=== PATIENT | female | born 1980 | race Caucasian/White ===

== ENCOUNTER 2023-12-20 11:00 | Outpatient (CLI) | payer OTHER, SELFPAY | END 2023-12-20 11:01 | disposition home or self-care (01) | PROVIDERS: Visit Provider Obstetrics & Gynecology | DX: N93.9 Abnormal uterine and vaginal bleeding, unspecified (principal) | CPT/HCPCS: 84146; 84443 ==

== ENCOUNTER 2023-12-31 11:35 | Outpatient (CLI) | payer OTHER, SELFPAY ==
--- NOTE | 2023-12-31 11:30 | CRLHL7_ITS ---
For Patients: As a result of the Century Cures Act, medical imaging exams and procedure reports are released immediately into your electronic medical record. You may view this report before your referring provider. If you have questions, please contact your health care provider. INDICATION: Abnormal bleeding COMPARISON: none TECHNIQUE: 2D queen scale and color Doppler images were acquired of the pelvis using a transabdominal and transvaginal approach. FINDINGS: Sonographic images demonstrate a normal size and smooth outer contour of the uterus. Uterus measures 9.4 cm in length by 3.6 cm in AP diameter by 5.8 cm in transverse dimension. The myometrium has a normal uniform echotexture. The endometrial lining measures 5.1 mm in composite thickness. IUD is present within the endometrial canal. The right ovary measures 2.8 x 1.6 x 1.4 cm in size and the left ovary measures 3.7 x 1.8 x 2.7 cm. The ovaries demonstrate normal arterial and venous blood flow on color Doppler analysis. There are no suspicious fluid collections within the cul-de-sac. Simple anechoic left ovarian cyst measures 1.9 x 1.1 x 2.0 cm. Additional simple left ovarian cyst measures 1.3 x 1.5 x 2.5 cm. IMPRESSION: Endometrial thickness 5.1 millimeters. IUD present within the endometrial canal in good position. Dictated by Tejas Phipps MD @ 12/31/2023 12:37:35 PM (Electronically Signed)
== END 2023-12-31 11:36 | disposition home or self-care (01) ==
LOC: US 11:35
PROVIDERS: Visit Provider Obstetrics & Gynecology
DX: N93.9 Abnormal uterine and vaginal bleeding, unspecified (principal); R93.89 Abnormal findings on diagnostic imaging of other specified body structures
CPT/HCPCS: 76830; 76856

== ENCOUNTER 2024-01-09 09:49 | Outpatient (CLI) | payer OTHER, SELFPAY | END 2024-01-09 09:50 | disposition home or self-care (01) | PROVIDERS: Visit Provider Family Medicine | DX: R53.83 Other fatigue (principal); F32.A Depression, unspecified; F41.9 Anxiety disorder, unspecified; Z13.6 Encounter for screening for cardiovascular disorders | CPT/HCPCS: 80053; 80061; 82728 ==

== ENCOUNTER 2024-01-22 05:50 | Day surgery (SDC) | payer OTHER, SELFPAY ==
[2024-01-22] VITALS (12 sets, daily range): BP systolic 106–126; BP diastolic 55–89; PULSE 55–74; RESP 14–20; TEMP 35.8–36.9; O2SAT 97–100; BMI 27.8
--- OUTSIDE RECORDS SUMMARY | 2024-01-22 05:54 | XMS_ITS | Clinical Summary ---
Author Organization [employer] [facility] Address [place], [place] [address] Care Team Providers Care Engine Room Helper Name Role Phone Sol High MD Primary Care Provi harshad Allergies Active Allergy Reactions Criticality Noted Date Comments Cats (Fur, Dander, Saliva) Runny Nose House Dust Runny Nose 12/02/2022 Pollen Extracts Runny Nose 12/02/2022 Medications Medication Sig Dispensed Refills Start Date End Date Status albuterol HFA (Ventolin HFA) 90 mcg/actuation inhalerIndications:S easonal allergic rhinitis due to pollen Inhale 2 Puffs by mouth 4 times daily if needed (cough). 18 g 1 10/07/2021 Active Calcium Citrate 250 mg calcium tablet Take 2 Tablets (500 mg) by mouth two times daily with meals. 240 Tablet 5 04/07/2022 Active multivitamin (MVI) tablet Take 1 Tablet by mouth once daily. 0 04/07/2022 Active elderberry fruit 50 mg/5 mL syrp Take by mouth. 0 04/07/2022 Active azelastine 137 mcg/actuation (ASTELIN) nasal sprayIndications:All ergic rhinitis due to pollen, unspecified seasonality Inhale 1 [place] into affected nostril(s) two times daily. 30 mL 2 04/07/2022 Active Active Problems Problem Noted Date Diagnosed Date Fatty liver 08/03/2021 Dysmenorrhea 08/03/2021 Overview (08/03/2021): Sees ObGyn for hysterectomy Family history of breast cancer 08/03/2021 Overview (08/03/2021): And ovarian cancer and melanoma History of alcohol use disorder 01/01/2019 Generalized anxiety disorder 01/25/2018 Major depressive disorder 01/25/2018 LGSIL of cervix of undetermined significance 03/2013 Overview (11/19/2023): 03/2012 LSIL 05/2012 [place]: No biopsy 11/2013 LSIL/HPV+, HPV 16/18 negative 11/2013 [place]: LOLI 1 11/2015 LSIL 04/2016 [place]: Biopsy LOLI 1, ECC Benign 11/2017 ASCUS/HPV+ 12/2017 [place]: Biopsy and ECC Benign 04/2019 LSIL/HPV+ 02/2020 [place]: ECC Benign 04/2020 ASCUS/HPV+ 12/2021 LSIL/HPV+, HPV 16/18 negative 03/2022 [place]: ECC Benign 10/2023 LSIL/HPV+, HPV 16/18 negative. Plan: Pap/HPV due 10/2024. Allergic rhinitis, cause unspecified 08/12/2003 Resolved Problems Problem Noted Date Diagnosed Date Resolved Date Mild intermittent asthma without complication 12/14/19 21 10/04/2022 Post-dates 02/19/2016 017 Positive GBS test 01/31/2016 04/10/2016 Overview (01/31/2016): Will need antibiotics in labor Anemia affecting 12/23/2015 0 04/10/2016 Rubella non-immune status, antepartum 11/19/2015 04/10/2016 Overview (11/19/2015): Recommend MMR Anemia affecting 11/19/2015 0 04/10/2016 Overview (11/19/2015): 11/19/2015 Hemoglobin 11.0 at 28w0d (new OB visit) Encounter for supervision of other normal , second trimester 11/18/2015 04/10/2016 Overview (02/08/2016): 35 y.o. Medical concerns: None - New patient Late care - 27+ weeks. H/O vag delivery--- 2012 Genetic screening: not done Ultrasound findings: 1) 11/25/15 at 28w6d. Normal FAS, anterior placenta. Consistent with LMP. Peds: Will continue to use current FOB: involved, name Rubella nonimmune, Rh positive. IOL scheduled for 02/18/16 in the AM. Likely Cytotec unless [place] improved by that point (from 02/08/16, it is 4 today). Okay with early AROM/whatever is needed for induction. LGSIL of cervix of undetermined significance 5 08/03/2021 Overview (05/31/2020): 04/18/2012 Pap: LSIL 05/30/2012 [place]: No Bx () 01/02/2013 Pap: LSIL 11/26/2013 Pap: LSIL/HPV+ 12/22/2013 [place]: LOLI I 11/26/2015 Pap: LSIL 05/19/2016 [place]: LOLI I 12/04/2017 Pap: ASCUS/HPV positive 01/08/2018 [place]: Benign 04/29/2019 Pap: LSIL/HPV+ 03/11/2020 [place]: ECC Benign 04/30/2020 Pap: ASCUS/HPV+ PLAN: Repeat Pap and HPV @ 1 year- 04/2021 Influenza with other respira tory manifestations 06/08/2004 04/10/2016 Encounters Date Type Department Care Team Description 01/01/2024 Lab Requisition [facility] [phone] Audra Delgado MD 11/19/[address] [phone] Beni Pacheco MD Pap Plan 11/07/2023 3:15 PM CDT Office Visit [address] [phone] Beni Pacheco MD Consult (Vaginal discharge and pain ) 11/07/2023 Travel 11/04/2023 1:30 PM CDT Office Visit [facility] [address] [facility] [place] [phone] Laura Marin, SAM Vaginal Problem (hx kajal cyst 04/17, noticed vaginal pain x couple months , getting worse) 11/04/2023 Travel from Last 3 Months Immunizations Name Administration Dates Next Due HPV 9 (Gardasil 9) 11/07/2023 Influenza, IIV4 03/03/2021, 0,12/30/2018,2017,12/30/2015 Influenza,CCIIV4 PRESERV FREE 01/27/2022 MMR 02/20/2016 Pneumococcal Conj 20-valent (Prevnar 20) 04/07/2022 Tdap 11/26/2015 Family History Medical History Relation Name Comments Diabetes Father Hypertension Father Stroke Father Cancer-breast Maternal Aunt Cancer Maternal Grandmother ovarian Diabetes Mother Cancer-breast Paternal Grandmother Relation Name Status Comments Father Maternal Aunt Maternal Grandmother Mother Paternal Grandmother Social History Tobacco Use Types Packs/Day Years Used Date Smoking Tobacco: Former Cigarettes Q uit: 2003 Smokeless Tobacco: Never Tobacco Cessation:Counseling Given: Not Answered Alcohol Use Standard Drinks/Week Comments Not Currently 0 (1 standard drink = 0.6 oz pure alcohol) sober 18 months as of 04/30/2020 PHQ-2 Answer Date Recorded PHQ-2 TOTAL SCORE 4 08/03/2021 Social Connections Answer Date Recorded Frequency of Communication with Friends and Fami ly Not on file 12/12/2023 Financial Resource Strain Answer Date R ecorded Difficulty of Paying Living Expenses 3 12/02/2022 Difficulty of Paying Living Expenses Not on file 12/02/2022 Food Insecurity Answer Date Recorded Worried About Running Out of Food in the Last Ye ar 1 12/02/2022 Transportation Needs Answer Date Record ed Lack of Transportation (Medical) 1 12/02/2022 Housing Stability Answer Date Recorded Unable to Pay for Housing in the Last Year 1 12/02/2022 Sex and Gender Information Value Date Recorded Sex Assigned at Not on file Gender Identity Female 09/13/2019 1:53 AM CDT Sexual Orientation Straight 09/13/2019 1: 53 AM CDT Obstetrics History Para Term AB IAB SAB Ectopic Multiple Livin g Live Births 4 2 2 0 2 0 1 1 0 2 2 Date Outcome GA Total Labor Labor/2nd/3rd Weight Sex Type Anes PTL Marcie A1 A5 Name Clin Ectopic SAB 2012 Term 41w 0d 3.37 kg (7 lb 7 oz) Vag Livin g 2015 Term 41w 1d 3.34 kg (7 lb 5.8 oz) F VAGINA L LEIDY Epidur al Livin g 8 9 [facility] Delivery Location:[facility] Last Filed Vital Signs Vital Sign Reading Time Taken Comments Blood Pressure 116/80 11/07/2023 3:12 PM CDT Pulse 86 11/07/2023 3:12 PM CDT Temperature 36.7 ??C (98.1 ??F) 11/04/2023 1:37 PM CD T Respiratory Rate 18 11/04/2023 1:37 PM CDT Oxygen Saturation 97% 11/04/2023 1:37 PM CDT Inhaled Oxygen Concentration - - Weight 74.4 kg (164 lb) 11/07/2023 3:12 PM CDT Height 162.6 cm (5' 4) 12/08/2022 8:10 AM CDT Body Mass Index 28.15 12/08/2022 8:10 AM CDT Plan of Treatment Health Maintenance Due Date Last Done Comments Hepatitis C screening for age 18-79 11/14/1999 Depression screening for age 12+ 08/03/2022 08/03/2021, 04/30/2020, 05/02/2019, Additional history exists BMI (ht and wt on same day) for age 18+ 01/19/2023 01/19/2022, 08/03/2021, 04/30/2020, Additional history exists COVID-19 vaccine series ( season) 2023 01/27/2022, 03/03/2021, 08/14/2020, Additional history exists Influenza for age 9-49 11/25/2023 2, 03/03/2021, 01/22/2020, Additional history exists Pap test for age 21-65 11/06/2024 4, 11/07/2023, 04/19/2022 (Verified in Care Everywhere or Patient Record), Additional history exists Tetanus booster 11/25/2025 11/26/2015 HIV for age 15-65 Completed 11/18/2015 Tdap Completed 11/26/2015 Pneumococcal series for age 6-64 Aged Out 04/07/2022 No longer eligible based on patient's age to complete this topic Procedures Procedure Name Priority Date/Time Associated Diagnosis Comments LAB TRACKING EVENT Routine 12/31/2023 11 :30 AM CDT PATH TISSUE EXAM Routine 12/31/2023 11:3 0 AM CDT COTTRELL BLOWER THIN PREP PAP DIAGNOSTIC IMAGED Routine 11/07/2023 10:04 AM CDT LGSIL on Pap smear of cervix HPV HIGH RISK Routine 11/07/2023 10:04 AM CDT LGSIL on Pap smear of cervix TRICHOMONAS, KYRA, AND BACTERIAL VAGINOSIS BY VERN STAT 11/04/2023 1:31 PM CDT Vaginal discharge ANTI HIV 1/2 Routine 11/18/2015 3:38 PM CDT Encounter for supervision of other normal , first trimester from Last 3 Months or Most Recently Relevant to Health Maintenance Results * LAB TRACKING EVENT (12/31/2023 11:30 AM CDT) Other (Other) Client Collect / Unknown 12/31/2023 11:30 AM CDT 01/01/2024 10:24 PM CDT Audra Delgado MD LAB BILL ONLY [facility] [address] [place] [address], * PATH TISSUE EXAM (12/31/2023 11:30 AM CDT) Case Report Pathology Report ?Case: [id number] ? Authorizing Provider: ??Audra Delgado MD ?Collected: ? 12/31/2023 1130 ? Ordering Location: ? [facility] ?Received: ?01/02/2024 0633 ? Pathologist: ? Zay Campos MD ? Specimen: ?Endometrial Biopsy ? 01/03/2024 11:23 AM [facility] Final Diagnosis A) ENDOMETRIUM, BIOPSY: 1. Inactive endometrium with exogenous hormone therapy effect 2. Negative for chronic endometritis 3. Negative for hyperplasia, atypia, and malignancy in this sample 01/03/2024 11:23 AM [facility] Clinical Information Abnormal uterine bleeding 01/03/2024 11:23 AM [facility] Gross Description A) Received in formalin, labeled with the patient's name and endometrial biopsy, is a 2.1 x 1.5 x 0.4 cm aggregate of pink-torre mucosa admixed with clotted blood and mucous. The specimen is entirely submitted in 1 cassette. TRS 01/02/2024 01/03/2024 11:23 AM [facility] Microscopic Description The final diagnosis is based on microscopic examination of appropriate sections of all specimens. 01/03/2024 11:23 AM [facility] Additional Information Interpreted at [facility] - [address], [place] [address] 01/03/2024 11:[address] [facility] Other (Endometrial Biopsy) 12/31/2023 11:30 AM CDT 01/02/2024 6:33 AM CDT Audra Mary Delgado MD PATHOLOGY/CYTOLOGY [facility] [address] [place] [address], * (ABNORMAL) COTTRELL BLOWER THIN PREP PAP DIAGNOSTIC IMAGED (11/07/2023 10:04 AM CDT) Case Report Gynecologic Cytology Report ? Case: [id number] ? Authorizing Provider: ??Beni Pacheco MD ??Collected: ? 11/07/2023 1004 ? Ordering Location: ? [facility] [place] ?Received: ?11/08/2023 1004 ? Clinic ? First Screen: ?Belem Carver ? Pathologist: ? Brett Jaimes MD ? Specimen: ?COTTRELL BLOWER ThinPrep Vial Diagnostic, Cervical ? 12/28/2023 10:02 AM CDT [facility] Amendment Corrected Collection Date Only 12/28/2023 10:02 AM CDT [facility] ENTRAL LABORATORY INTERPRETATION/ RESULT LOW GRADE SQUAMOUS INTRAEPITHELIAL LESION (LSIL)(A) (none) 12/28/2023 10:02 AM CDT [facility] Amendment electronically signed by Brett Jaimes MD on 12/28/2023 at 10:02 AM IMEN ADEQUACY Satisfactory for evaluation Endocervical component present 12/28/2023 10:02 AM CDT [facility] HPV REQUEST HPV and PAP 12/28/2023 10:02 AM CDT [facility] Date of LMP IUD 12/28/2023 10:02 AM CDT [facility] Last Pap Date 01/19/22 12/28/2023 10:02 AM CDT [facility] Last Pap Result LSIL 10:02 AM CDT [facility] Abnormal Pap or [place] Bx in last 5 years Yes 12/28/2023 10:02 AM CDT [facility] Menstrual Status Regular Periods 12/28/2023 10:02 AM CDT [facility] [place] Bx Done Today No 12/28/2023 10:02 AM CDT [facility] Additional Information None Given 12/28/2023 10:02 AM CDT [facility] Comment: Cytology is screened at [facility] - [address], [place] [address] and [facility] - [address], [place] [address] and [facility] - [address] [place] [address] Interpreted at [facility] - [address], [place] [address] Automated Review Successful 12/28/2023 10:02 AM CDT [facility] Comment:Specimen processed s uccessfully by automated harvest worker device, [id number] Imaging System, [employer] ANCILLARY TESTING COTTRELL BLOWER HPV Ordered, Please see separate report 12/28/2023 10:02 AM CDT [facility] Note The pap test is a screening technique, not a diagnostic procedure. It is used primarily to screen for squamous cancers and precursor lesions. Published studies have shown that it is subject to both false negative and false positive results. The pap test should not be used as the sole means to diagnose or exclude pre-malignant and malignant lesions. 12/28/2023 10:02 AM CDT [facility] Other (Cervical) Non-Blood / Unknown 11/07/2023 10:04 AM CDT 11/08/2023 10:04 AM CDT Beni Pacheco MD PATHOLOGY/CYTOLO GY [facility] [address] [place] [address], * (ABNORMAL) HPV HIGH RISK (11/07/2023 10:04 AM CDT) TYPE 16 Negative Negative 12/28/2023 3:22 PM CDT [facility] TYPE 18 Negative Negative 12/28/2023 3:22 PM CDT [facility] OTHER HIGH RISK TYPES Positive(A) Negative 12/28/2023 3:22 PM CDT [facility] Other (Cervical) Non-Blood / Unknown 11/07/2023 10:04 AM CDT 11/09/2023 9:25 AM CDT Narrative [facility] - 12/28/2023 3:22 PM CDT Corrected Collection Date Only Specimen is positive for the DNA of any one of, or combination of, the following high risk HPV types: 31, 33, 35, 39, 45, 51, 52, 56, 58, 59, 66, 68. HPV types 16 and 18 DNA were undetectable or below the pre-set threshold. ? Methodology: Gregg Yakov 4800 HPV Test Beni Pacheco MD MICROBIOLOGY Performing Organization Address [facility] Co de Phone Number [facility] [address] [place] [address], * TRICHOMONAS, KYRA, AND BACTERIAL VAGINOSIS BY VERN (11/04/2023 1:31 PM CDT) KYRA SPECIES Negative Negative 4 5:31 PM CDT [facility] KYRA GLABRATA Negative Negative 11/05/2023 5:31 PM CDT [facility] TRICHOMONAS VVA Negative Negative 4 5:31 PM CDT [facility] BACTERIAL VAGINOSIS Negative Negative 11/05/2023 5:31 PM CDT [facility] Other VAGINAL SWAB / Unknown Non-Blood / Unknown 11/04/2023 1:31 PM CDT 11/04/2023 2:28 PM CDT Laura Marin NP MICROBIOLOGY Performing Organization Address [facility] Co de Phone Number [facility] [address] [place] [address], * ANTI HIV 1/2 (11/18/2015 3:38 PM CDT) HIV-1/HIV-2 ANTIBODY Non-Reacti ve Non-Reacti ve 11/18/2015 9:03 PM CDT [facility] Blood BLOOD SPECIMEN / Unknown Venipuncture / Unknown 11/18/2015 3:38 PM CDT 11/18/2015 3:39 PM CDT Narrative [facility] - 11/18/2015 9:03 PM CDT HIV-1 p24 and HIV-1/HIV-2 Ab not detected Jada Jackson MD SEND OUTS [facility] [address] [place] [address], from Last 3 Months or Most Recently Relevant to Health Maintenance Advance Directives * Full Code (Latest Code Status on File) Date Activated Date Inactivated Comments 02/19/2016 5:53 AM 02/20/2016 6:12 PM Question Answer Comments Code Status Discussion: Not Discussed * Full Code Date Activated Date Inactivated Comments 02/18/2016 1:47 PM 02/19/2016 5:13 AM * Full Code Date Activated Date Inactivated Comments 02/18/2016 9:14 AM 02/18/2016 1:47 PM * Full Code Date Activated Date Inactivated Comments 02/16/2016 8:32 PM 02/17/2016 12:08 AM Care Teams Engine Room Helper Relationship Specialty Start Date End Date Sol High MD [address] [facility] [place] [address] PCP - General Family Practice 09/15/21
[2024-01-22] MEDS: SODIUM CHLORIDE 0.9 % (FLUSH) 10 ML SYRINGE IVF (06:29)
[2024-01-22 06:42] LABS: Basophils Absolute Auto 0.05 K/uL (0.00-0.30); Basophils Percent Auto 0.7 % (0.0-3.0); Eosinophils Percent Auto 2.7 % (0.0-7.0); Hematocrit 38.5 % (33.0-51.0); Hemoglobin* 12.4 gm/dL (12.0-16.0); Immature Granulocytes Abs Auto 0.01 K/uL (0.00-0.30); Immature Granulocytes Pct Auto 0.1 %; Lymphocytes Absolute Auto 2.27 K/uL (0.90-2.90); Lymphocytes Percent Auto 30.5 % (20-44); Mean Corpuscular HGB Conc 32 gm/dL (32-36); Mean Corpuscular Hemoglobin 29 pg (26-34); Mean Corpuscular Volume 91 fL (80-100); Neutrophils Absolute Auto 4.46 K/uL (1.7-7.0); Platelet Count* 250 K/uL (140-440); RDW Coefficient of Variation % 13.1 % (11.5-15.5); Red Blood Count 4.25 m/uL (4.00-5.20); White Blood Count* 7.44 K/uL (4.50-11.00)
[2024-01-22 06:45] LABS: Ur HCG Qualitative* Negative (Negative)
[2024-01-22 06:46] LABS: Slide Review Reflex No
[2024-01-22] MEDS: 0.9 % SODIUM CHLORIDE 500 ML 500 ML 100 ML IV ×2 (06:58→10:14)
[2024-01-22 07:02] LABS: Creatinine* 0.6 mg/dL (0.5-1.5); Est. Creatinine Clearance* 105.47; Estimated Glomerular Filt Rate 115 ml/min
--- NOTE | 2024-01-22 07:18 | W.PM.H&PU_ITS ---
History & Physical Update History & Physical Update H&P Reviewed and patient assessed: No changes noted H&P Updates: We reviewed surgical consents again. We discussed indication for hysterectomy, risks, benefits, and alternatives. Patient desires for removal of her ovaries as well due to concern for future malignancy. I advised retaining her ovaries given that we anticipate that they are healthy and functioning normally. They are essential for her cardiovascular health, bone health, libido and removal without proper hormone replacement increases all cause mortality. It would put her into surgical menopause. If her ovaries are grossly abnormal or there is concern for potential mal ignancy, I will remove them as indicated. It is highly unlikely that both will need to be removed. She understands that if both her ovaries are removed prior to physiologic menopause, she would need hormone replacement until then. Overall, our plan is for vaginal hysterectomy and bilateral salpingectomy for the indication of persistent cervical dysplasia and abnormal uterine bleeding. We discussed the possibility of conversion to laparoscopic or open abdominal hysterectomy. We reviewed postop recovery course. All questions were answered to patient's satisfaction.
[2024-01-22] MEDS: CEFAZOLIN 2 GM INJ IVP (07:45)
[2024-01-22] MEDS: LIDOCAINE 1%-EPI 1:100,000 20 ML INFILTRATI (09:31)
--- NOTE | 2024-01-22 09:59 | W.ANESCHARGE ---
Anesthesia Charges Start Date/Time Anesthesia Start Date: 01/22/24 Anesthesia Start Time: 07:15 Stop Date/Time Anesthesia Stop Date: 01/22/24 Anesthesia Stop Time: 09:50
--- NOTE | 2024-01-22 10:07 | PM.GYNPRHY ---
Procedure Type of Hysterectomy: Vaginal Pre-op/Post-op diagnoses: Pre-Op/Post-Op Diagnoses Operation Date: 01/22/24 07:15 <No data on this case meets the specified criteria> Procedure: Procedures Operation Date: 01/22/24 07:15 Actual Procedure Side Surgeon p M/S-TOTAL Vaginal Hysterectomy, BILATERAL SALPINGECTOMY, RIGHT OVARIAN CYSTSTECTOMY, CYSTOSCOPY Bilateral Audra Delgado MD Dealer Analyst: Jacinda Guzman Estimated blood loss (mL): 25 Anesthesia Type: Local and Spinal Complications: none Fluids: crystalloid Fluid amount (mL): 800 Urine output (mL): 400 Weight of Uterus: 3.21 oz Specimen: uterus, left tube, right tube and other (Righ ovarian cyst) Findings: EUA: Mons normal, clitoris normal, urethral meatus normal. Labia minora and majora normal in appearance bilaterally. Perineum and anus normal appearance. Vaginal introitus normal appearance. Vaginal pink and well rugated with scant white discharge. Cervix pink and without lesion - unable to visualized that IUD strings. Bimanual exam reveals uterus to be soft, nontender, mobile, anteverted, of normal size and texture. No palpable adnexal masses or tenderness. After hysterectomy, 2 cm right ovarian simple cyst was noted. Left fallopian tube with paratubal cyst. Normal right fallopian tube. Cystoscopy: Bladder was noted to be without defect and no evidence of any sutures from the vaginal cuff causing injury. Normal urine flow was noted through both ureteral orifices. Narrative: Preoperative diagnosis: Persistent low grade cervical dysplasia and abnormal uterine bleeding. Postoperative diagnosis: Same Drains: Mascorro to gravity: Clear urine at the end of the procedure. Procedure: Maryellen was taken to the operating room where spintal anesthesia was found be adequate. She is placed in the dorsal lithotomy position and an exam under anesthesia performed with the findings stated above. She was then prepped and draped in a sterile manner. A Mascorro catheter was placed. A weighted speculum was placed in the posterior aspect of the vaginal introitus. The cervix was grasped with 2 single-toothed tenaculums and the cervix circumferentially injected with 20 cc of 1%lidocaine with epinephrine. A circumferential incision was made around the cervix with a scalpel. The anterior vaginal mucosa was grasped with an Allis clamp and the anterior cul-de-sac formed with Metzenbaum scissors. The peritoneum was grasped an with toothed forceps and the peritoneum entered sharply with Metzenbaum scissors. This opening was extended with blunt pressure and a [place] retractor placed through the opening. The posterior cul-de-sac was entered sharply with Ulloa scissors and a long weighted speculum was placed. Pedicles of the hysterectomy were formed using Pranay clamps. All pedicles were Pranay transfixed. The 1st pedicle was formed on the patient's left incorporating the uterosacral ligament. This was divided and Kalina transfixed. These sutures were tagged with a small clamp. The right uterosacral ligament was grasped in the 1st right pedicle that pedicle was divided, Pranay transfixed in the sutures held with a small Hawa clamp. Sequential pedicles were then formed using Kalina clamps, all pedicles were divided sharply and Pranay transfixed. At the level of the cornea at the utero ovarian ligament ligament were cross-clamped with a Kalina clamp and divided. The cornual pedicles were doubly suture ligated: 1st with an 0 Vicryl free tie followed by an 0 Vicryl stick tie in a fore and aft manner. All pedicles were noted to be hemostatic. Ligasure device was used to perform bilateral salpingectomy without complications. At this point, the right ovarian cyst was noted to be draining. Electrocautery was used to make small incision to allow all the fluid to drain. Fluid was clear. Gentle pressure used to drain all the fluid and small yellow cyst was expressed through the incision. This was sent to pathology. Ovarian cyst incision as sealed with the LigaSure. 2-0 vicryl on an SH was used to close the peritoneum to the anterior vaginal cuff. Excellent hemostasis was noted gain. The angles of the vaginal cuff were closed with a stitch of 0 Vicryl, incorporating the distal most aspect of the uterosacral pedicle into the closure. The intervening vaginal cuff was closed with a series of rdhzep-co-brzxr sutures of 0 Vicryl in a vertical direction. Hemostasis was noted. All instruments were removed from the vagina. Mascorro catheter was removed from the patient's bladder. Patient was administered IV sodium fluorescein to aid in visualization of ureteral jets. Cystoscopy was performed, revealing bilateral ureteral jets and no injury to the bladder. The cystoscope was removed and the Mascorro catheter replaced. Sponge, lap and instrument counts were correct x2 at the end of the procedure. Debrief performed and surgical specimens reviewed. The patient was taken to the recovery room in stable condition. Prior to the procedure the patient received: 2g Ancef for antibiotic prophylaxis
--- NOTE | 2024-01-22 10:11 | W.ANESCHARGE ---
Anesthesia Charges Start Date/Time Anesthesia Start Date: 01/22/24 Anesthesia Start Time: 07:15 Stop Date/Time Anesthesia Stop Date: 01/22/24 Anesthesia Stop Time: 09:50
[2024-01-22] MEDS: IBUPROFEN 600 MG TABLET PO ×2 (13:28→21:01)
[2024-01-22] MEDS: GABAPENTIN 100 MG CAPSULE PO ×2 (13:28→21:01)
[2024-01-22] MEDS: diphenhydrAMINE 50 MG/ML inj 12.5 MG IVP ×2 (13:29→21:02)
--- NOTE | 2024-01-22 20:03 | PC.NURSE ---
Nursing Care Hours: 9750-4533 Pt arrived to unit from PACU alert and oriented. No N/V, denies pain. Post op VS remain stable. The last two BP were softer, pt asymptomatic. Tolerating standing. Walked the morse x1. Mascorro patent. Scant bleeding on chelsea pad. Staff Forester noted spider web shaped bruising on bilat upper inner thighs. Reported BP and bruising to [place] via Halo. No changes ordered at this time. Pt tolerating regular diet. Benadryl given for post op itching. Fluids dc'd, IV saline locked.
[2024-01-23 01:45] VITALS: BP 102/57; PULSE 77; RESP 16; TEMP 36.4; O2SAT 98
[2024-01-23] MEDS: IBUPROFEN 600 MG TABLET PO ×2 (02:35→08:47)
[2024-01-23] MEDS: diphenhydrAMINE 50 MG/ML inj 12.5 MG IVP (02:36)
[2024-01-23 03:00] VITALS: RESP 16
[2024-01-23 06:43] LABS: Hemoglobin* 11.9 gm/dL (12.0-16.0)
[2024-01-23 06:58] LABS: Creatinine* 0.6 mg/dL (0.5-1.5); Est. Creatinine Clearance* 105.47; Estimated Glomerular Filt Rate 115 ml/min
[2024-01-23 08:01] VITALS: BP 119/86; PULSE 97; RESP 16; TEMP 36.3; O2SAT 98
--- NOTE | 2024-01-23 08:09 | PC.NURSE ---
END OF SHIFT NOTE: PT PLEASANT AND COOPERATIVE WITH CARES. MARELY PATENT. VSS ON RA; AFEBRILE. PT ADMINISTERED PRN BENADRYL FOR ITCHING. UNEVENTFUL SHIFT.
--- NOTE | 2024-01-23 08:30 | P.DS_ITS ---
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 Intraoperative right ov jax cystectomy was performed. Indication for surgery: * Persistent low grade cervical dysplasia * Abnormal uterine bleeding Intraoperative findings: EUA: Mons normal, clitoris normal, urethral meatus normal. Labia minora and majora normal in appearance bilaterally. Perineum and anus normal appearance. Vaginal introitus normal appearance. Vaginal pink and well rugated with scant white discharge. Cervix pink and without lesion - unable to visualized that IUD strings. Bimanual exam reveals uterus to be soft, nontender, mobile, anteverted, of normal size and texture. No palpable adnexal masses or tenderness. After hysterectomy, 2 cm right ovarian simple cyst was noted. Left fallopian tube with paratubal cyst. Normal right fallopian tube. Cystoscopy: Bladder was noted to be without defect and no evidence of any sutures from the vaginal cuff causing injury. Normal urine flow was noted through both ureteral orifices. She had an uncomplicated surgery. Postoperative course has been uneventful. Vitals have been stable. She has remained afebrile. Today, on postoperative day 1, she reports the pain is well controlled on Tylenol. She has been able to ambulate Without difficulty. She is tolerating regular diet. She is passing flatus. Ambrosio catheter has been removed, and she is voiding without difficulty. Time Spent with Patient Time attestation: Total time spent providing and/or coordinating discharge services: Time spent: Less than 30 minutes FIREWORKS INSPECTOR - Exam Physical Exam: Vital signs: Temp Pulse Resp BP Pulse Ox O2 Del Method 97.3 F L 97 16 119/86 98 Room Air 01/23/24 08:01 01/23/24 08:01 01/23/24 08:01 01/23/24 08:01 01/23/24 08:01 01/23/24 08:01 Narrative: Physical exam: General: No acute distress Psych: Alert and oriented x4, full affect HEENT: Normocephalic, atraumatic Neck: No cervical adenopathy, no thyromegaly Heart: Regular rate and rhythm, no murmur rub or gallop Lungs: Clear to auscultation bilaterally Abdomen: Normoactive bowel sounds, soft, no tenderness, rebound, or guarding Skin: No lesions or rashes Lower extremities: No edema or erythema Pelvic exam: Scant bleeding on pad FIREWORKS INSPECTOR - DS: Data Data Completed and Pending Labs on day of discharge: Labs from last 24 hours 01/23/24 06:21 Hgb 11.9 L Creatinine 0.6 Estimated Creat Clear 105.47 Estimated GFR 115 Procedures Procedures: Procedures Operation Date: 01/22/24 07:15 Actual Procedure Side Surgeon p M/S-TOTAL Vaginal Hysterectomy, BILATERAL SALPINGECTOMY, RIGHT OVARIAN CYSTSTECTOMY, CYSTOSCOPY Bilateral Audra Delgado MD Complications: none Discharge Plan Discharge Disposition: Home w/ Parent or Adult Discharging Surgeon: Audra Delgado Follow-Up Appointment: 02/06/24 @[address] Delgado Prescriptions: New docusate sodium 100 mg Capsule 100 mg PO BID PRN (Reason: Constipation) Qty: 60 0RF gabapentin 100 mg Capsule 100 mg PO TID 14 Days Qty: 42 0RF ibuprofen 600 mg Tablet 600 mg PO Q6H PRN (Reason: pain) 30 Days Qty: 60 0RF simethicone 80 mg Tablet,Chewable 160 mg PO Q4H PRN (Reason: gas) 14 Days Qty: 60 0RF Continued azelastine [Astepro Allergy] 205.5 mcg (0.15 %) spray,non-aerosol 1 spray intranasal BID Rx Instructions: administer into each nostril melatonin 3 mg capsule 3 mg PO HS multivitamin Tablet 1 tab PO DAILY calcium citrate 250 mg calcium tablet 500 mg PO BID Rx Instructions: Take 2 Tablets (500 mg) by mouth two times daily with meals. escitalopram oxalate [Lexapro] 10 mg tablet 10 mg PO HS Discharge Diet: Regular Patient Instructions: Ibuprofen (By mouth), Simethicone (By mouth), Laxative, Stool Softeners (By mouth), Gabapentin (By mouth), Hysterectomy (DC) Additional Instructions: LAPAROSCOPY POSTOPERATIVE INSTRUCTIONS ACTIVITY No heavy lifting/pushing/pulling for 4-6 weeks. Do not lift anything more than about 15 lbs (such as laundry, groceries, children, pets), vacuum, push heavy doors or grocery carts, etc. You may climb stairs as tolerated. Do not put anything in the vagina for 6-8 weeks after surgery unless otherwise instructed by your doctor (including tampons, douching, sexual intercourse, etc). No driving for about 2 weeks after surgery, while you are taking narcotic pain medication, or until you feel that you are ready. Practice checking your blind spot and stepping hard on the brake. Avoid sitting or lying in bed for more than 2 hours at a time while you are a wake to reduce your risk of blood clots. You may return to work when directed by your physician. Please contact your doctor if you need any return to work letters or medical leave paperwork to be completed. WOUND CARE Shower daily after surgery. No tub baths until wound is completely healed. Wash your hands frequently, especially before touching your incision, changing any dressings, after using the restroom, and before eating. PAIN MANAGEMENT Take your oral pain medication as needed. You should be taking Ibuprofen 600mg every 6 hours with 650 mg of Tylenol every 6 hours. You can take these together every six hours or alternate them every 3 hours. You should then take the gabapentin as needed if you have breakthrough pain on top of the Tylenol and Ibuprofen. Some pain medications can cause constipation so you should take a stool softener (i.e. colace/senna) while you are on these medications. You may also take milk of magnesia or Miralax for constipation. WHAT TO EXPECT AT HOME Recovery from surgery is generally 2-4 weeks, but sometimes longer for more strenuous activity. It is normal to be very tired during this time. It is normal to have some drainage or a small amount of vaginal bleeding after surgery which may last up to 6 weeks. You may go home with a ambrosio catheter in your bladder. If so, you will need to follow up for a nurse visit in 7-10 days for removal. You will most likely experience gas pain, abdominal swelling, or shoulder pain for 24-72 hours after surgery. This is from the carbon dioxide gas put into your abdomen to better visualize your organs. A warm shower, heating pad, and/or walking may help. WHEN TO CALL YOUR DOCTOR : Fever (>100.4?F or 38.0?C) or chills. Incision problems such as redness, warmth, swelling, or foul-smelling drainage. Severe nausea or persistent vomiting. Bright red vaginal bleeding (soaking >1 pad/hour) or foul-smelling vaginal drainage. Severe pain not relieved with pain medication. Pain and swelling in your legs, especially if it is only on one side and not the other. Pain with urination, cloudy urine, or foul-smelling urine. Or if you have any other problems or questions. CALL 911 OR GO TO THE EMERGENCY ROOM IF YOU HAVE: Any shortness of breath, difficulty breathing, or chest pain. Follow-up: Tiana Yanez MD [Primary Care Provider] - Discharge Orders: Discharge Order (Routine); Ordered 01/23/24 Ordered By: Audra Delgado
[2024-01-23] MEDS: GABAPENTIN 100 MG CAPSULE PO (08:47)
[2024-01-23 10:32] VITALS: BP 106/74; PULSE 72; RESP 16; TEMP 36.6; O2SAT 96
--- NOTE | 2024-01-23 11:25 | PC.NURSE ---
Pt alert and oriented. Pt had no complaints of pain. Pt up independently in room and hallways. Pt's VS WNL. Pt's IV removed; catheter intact. Discharge paperwork done with Pt and spouse.
== END 2024-01-23 10:50 | disposition home or self-care (01) ==
LOC: OR 05:52 → MEDSURG 05:56
PROVIDERS: PCP Family Medicine; Visit Provider Obstetrics & Gynecology
PROC: (CPT 58262; principal; 2024-01-22 07:15)
DX: N87.0 Mild cervical dysplasia (principal); N83.291 Other ovarian cyst, right side; N83.8 Other noninflammatory disorders of ovary, fallopian tube and broad ligament; N93.8 Other specified abnormal uterine and vaginal bleeding
CPT/HCPCS: 58262; 00944; 36415; 81025; 82565; 85018; 85025; 86850; 86900; 86901; 88305; 88309; A9270; J0690; J1200; J2250; J2274; J2405; J2704; J3010; J7030

== ENCOUNTER 2024-01-26 03:36 | Emergency (ER) | payer OTHER, SELFPAY ==
[2024-01-26 03:41] VITALS: BP 130/82; PULSE 74; RESP 18; TEMP 36.7; O2SAT 99; BMI 28.3
--- NOTE | 2024-01-26 03:51 | CT_ITS ---
Patient: IRENE KRISHNA Facility:?[facility] Patient ID:?[id number] Site Patient ID:?[id number]. Site :?[id number] Study:?CT-Chest Angio PE W/ISOVUE 370 95CC-01/26/2024 4:15:34 AM Ordering Physician:Judy Del Rosario Final Report: INDICATION: Chest pain. Recent hysterectomy 01/22/2024 COMPARISON: None TECHNIQUE: : CT examination of the chest was performed with the uneventful intravenous administration of 95 cc of Isovue 370 while thin axial sections were obtained from above the apices of the lungs to the lung bases. The examination was timed as a pulmonary artery angiogram. Please note that all CT scans at this facility use dose modulation, iterative reconstruction, and/or weight-based dosing when appropriate to reduce radiation dose to as low as reasonably achievable. FINDINGS: : HEART and MEDIASTINUM: The heart size is normal. There is no mediastinal or hilar adenopathy or mass. There is no pericardial effusion.Small hiatal hernia. Mild thickening of the distal esophagus probably due to reflux associated change. Follow-up evaluation advised PULMONARY ARTERIAL CIRCULATION: There is no visible intraluminal filling defect to suggest pulmonary embolus. LUNGS and PLEURAL SPACES: The lungs show no focal consolidation or mass. The airways appear normal.There is no pleural effusion, pneumothorax or pleural based mass. Incidental right-sided granuloma. VISUALIZED UPPER ABDOMEN: The limited visualized upper abdominal structures appear normal. OSSEOUS STRUCTURES: Age-appropriate appearance. No acute fracture or destructive process. TUBES and LINES: None. IMPRESSION: 1. There is no finding of pulmonary embolus. 2. Lungs and pleural spaces show no acute focal findings. Incidental right-sided granuloma. 3. Small hiatal hernia and mild thickening of the distal esophagus may be due to chronic reflux associated change. Follow-up evaluation recommended at a clinically appropriate time Please note that all CT scans at this facility use dose modulation, iterative reconstruction, and/or weight-based dosing when appropriate to reduce radiation dose to as low as reasonably achievable. Dictated by Guilherme Campbell MD @ 01/26/2024 4:22:37 AM Signed by:?Guilherme Campbell MD @01/26/2024 4:22:37 AM (Electronic Signature)
[2024-01-26 04:02] LABS: Basophils Absolute Auto 0.05 K/uL (0.00-0.30); Basophils Percent Auto 0.6 % (0.0-3.0); Eosinophils Absolute Auto 0.24 K/uL (0.00-0.50); Eosinophils Percent Auto 2.7 % (0.0-7.0); Hematocrit 37.5 % (33.0-51.0); Hemoglobin* 11.9 gm/dL (12.0-16.0); Immature Granulocytes Abs Auto 0.01 K/uL (0.00-0.30); Immature Granulocytes Pct Auto 0.1 %; Lymphocytes Absolute Auto 3.08 K/uL (0.90-2.90); Lymphocytes Percent Auto 34.1 % (20-44); Mean Corpuscular HGB Conc 32 gm/dL (32-36); Mean Corpuscular Hemoglobin 29 pg (26-34); Mean Corpuscular Volume 91 fL (80-100); Monocytes Percent Auto 4.5 % (0.0-11.0); Neutrophils Absolute Auto 5.24 K/uL (1.7-7.0); Platelet Count* 265 K/uL (140-440); Red Blood Count 4.12 m/uL (4.00-5.20); White Blood Count* 9.03 K/uL (4.50-11.00)
[2024-01-26 04:05] LABS: Slide Review Reflex No
[2024-01-26 04:06] LABS: Troponin, Point-of-Care* 0.01 ng/ml (0.01-0.04)
--- NOTE | 2024-01-26 04:09 | ED_ITS ---
HPI - General Adult General Date Seen: 01/26/24 Chief complaint: Shortness of Breath/Dyspnea Stated complaint: shortness of breath, chest pain Time Seen by Provider: 01/26/24 03:42 Source: patient, RN notes reviewed and old records reviewed Mode of arrival: ambulatory Limitations: no limitations History of Present Illness HPI narrative: Patient is a 43-year-old woman who is status post uncomplicated hysterectomy and bilateral salpingectomy as well as right ovarian cystectomy on January 21. She reports that she has overall been doing really well, has not had significant abdominal pain, no vaginal bleeding. Tonight just before bed she had developed some sharp migratory pains across her chest, which she attributes to having overdone a little bit of lifting with her heavy CT and playing wrestling with her daughter. However, she woke up at 2:30 a.m. in the morning and felt pains were sharper. She felt a little short of breath at that time as well. Pain is not clearly pleuritic, not exertional. She has had no associated fever or cough, did feel kind of sweaty when she woke up at 2:30 a.m.. No unusual leg pain or swelling, no history of DVT or PE. She noted on her discharge paperwork however that she should be seen if she had chest pain, so she presents to the ER. She does not smoke, she has a history of mild well-controlled asthma. Medications reviewed. She tells me that she did take some Tylenol at 2:30 a.m. when she woke up and pain is now resolved. Related Data Home Medications ?Medication ?Instructions ?Recorded ?Confirmed multivitamin 1 tab PO DAILY 12/20/23 01/26/24 azelastine 205.5 mcg (0.15 %) 1 spray intranasal BID 01/09/24 01/26/24 nasal spray (Astepro Allergy) melatonin 3 mg capsule 3 mg PO HS 01/09/24 01/26/24 calcium citrate 500 mg PO BID 01/22/24 01/26/24 escitalopram oxalate 10 mg tablet 10 mg PO HS 01/22/24 01/26/24 (Lexapro) Previous Rx's ?Medication ?Instructions ?Recorded docusate sodium 100 mg capsule 100 mg PO BID PRN Constipation #60 01/23/24 caps gabapentin 100 mg capsule 100 mg PO TID 14 days #42 caps 01/23/24 ibuprofen 600 mg tablet 600 mg PO Q6H PRN pain 30 days #60 01/23/24 tabs simethicone 80 mg chewable tablet 160 mg (2 x 80 mg) PO Q4H PRN gas 01/23/24 14 days #60 tabs omeprazole 20 mg capsule,delayed 20 mg PO DAILY #14 caps 01/26/24 release Allergies Allergy/AdvReac Type Severity Reaction Status Date / Time grass pollen-perennial rye, Allergy Intermediate Verified 01/26/24 03:44 standar cat dander AdvReac Intermediate Verified 01/26/24 03:44 house dust mite AdvReac Intermediate Verified 01/26/24 03:44 Review of Systems Status of ROS: Reports: 10 or more systems reviewed and unremarkable except as noted in History and below [facility] History Borderline personality disorder ?F60.3 - Borderline personality disorder (ICD-10) Seasonal allergies ?J30.2 - Other seasonal allergic rhinitis (ICD-10) NAFLD (nonalcoholic fatty liver disease) (2020) ?K76.0 - Fatty (change of) liver, not elsewhere classified (ICD-10) History of alcoholism ?F10.21 - Alcohol dependence, in remission (ICD-10) Exercise-induced asthma ?J45.990 - Exercise induced bronchospasm (ICD-10) Depression ?F32.A - Depression, unspecified (ICD-10) Anxiety ?F41.9 - Anxiety disorder, unspecified (ICD-10) Surgical History History of tooth extraction (10/2023) ?K08.409 - Partial loss of teeth, unspecified cause, unspecified class (ICD- 10) Family History Aunt Breast cancer, Onset Age: 55 Melanoma Paternal Grandmother Breast cancer, Onset Age: 75 Maternal Grandfather Myocardial infarction, Onset Age: 55 Stroke Maternal Grandmother Myocardial infarction, Onset Age: 75 Father Stroke, Onset Age: 67 Type 2 diabetes mellitus Personality disorder Paternal Grandfather Stroke, Onset Age: 75 Aunt Melanoma Mother Type 2 diabetes mellitus Depression with anxiety Social History Narrative: , [id number] mom, lives in [place], 2 children No regular exercise Ex-smoker quit May 2023, history of 10 pack years Does not drink alcohol, quit 2018 What is your current living situation?: I presently have a place to live Problems where you live: no known problems In the past 12 months, utilities in danger of being shut off: no In past 12 months, lack of transportation kept you from medical appts, meetings, work, or getting things needed for daily living: no In the past 12 mos, have been you worried that your food would run out before you had money to buy more?: never true In the past 12 mos, the food you bought just didn't last and you didn't have money to buy more?: never true Smoking Status: Former smoker Do you use any of these nicotine containing products: None Second hand tobacco smoke exposure: No How often do you have a drink containing alcohol: never AUDIT-C Alcohol total score: 0 Non-prescribed substance use: denies use Caffeine: Yes How often does anyone, including family, friends and others, physically hurt you : never How often does anyone, including family, friends and others, insult or talk down to you: never How often does anyone, including family, friends and others, threaten you with harm: never How often does anyone, including family, friends and others, scream or curse at you: never Little interest or pleasure in doing things: more than half the days Feeling down, depressed, or hopeless: more than half the days Exam Narrative: Exam Narrative: Vital signs as noted above. In general, an alert, well-appearing patient. Head: Normocephalic, atraumatic. Eyes: Pupils are equal reactive. Extraocular movements are full. Conjunctivae are normal. ENT: Mucous membranes are moist. Throat is normal. Neck: Supple without lymphadenopathy. Heart: Regular rate and rhythm. No murmur or rub. Lungs: Clear bilaterally. No increased work of breathing, crackles or wheezes. Abdomen: Soft and nontender. No organomegaly. Extremities: Well perfused. No edema. No calf tenderness. Pulses intact. Neurologic: Patient is alert and oriented to person and place. Speech is fluent. Face is symmetric. Moves all extremities equally. Affect: Normal. Skin: Warm and dry. Well perfused. Const: Vital Signs, click to edit/add: Vital Signs - 24 hr 01/26/24 03:41 01/26/24 04:35 Temperature 98.0 F 98.0 F Pulse Rate [Right Pulse Oximeter] 74 78 Respiratory Rate 18 18 Blood Pressure [Ri ght Upper Arm] 130/82 128/78 Pulse Oximetry 99 99 Oxygen Delivery Me thod Room Air Room Air Documenting provider has reviewed patient's vital signs: yes Course Course ED Course: Patient presents with a history of chest pain earlier which was sharp and in various places across her chest, not clearly pleuritic but associated with a little bit of shortness of breath. She several days postop, does not have other identifiable risk factors for PE, no tachycardia or hypoxia. Reviewed options with her of starting with a D-dimer, which may be falsely elevated secondary to her recent surgery, verses going immediately to CT which involves potentially unnecessary radiation, and cost. She is in the ER at 4:00 a.m. with her and 2 children, she would like to expedite her workup and so elects to proceed with CT rather than screening 1st with D-dimer. I think based on the higher likelihood of an abnormal D-dimer number from her recent surgery it is not unreasonable to pursue CT scanning. Will also check a CBC to make sure she is not significantly anemic, troponin, EKG. My suspicion for cardiac chest pain however is quite low. EKG reviewed and shows sinus rhythm, ventricular rate of 63, no acute ST segment changes, normal T-waves. Troponin is 0.01. Pain started around 6 hours ago, I do not think this represents acute coronary syndrome. CT scan by my review showed no evidence of pulmonary embolism or infiltrate. Radiology read reviewed, she has some mild thickening of the distal esophagus, denies any history of reflux, and symptoms tonight are not overly suggestive of gastroesophageal reflux, but I think it is reasonable to start her on a PPI geraldo unt of asked her to follow that up with her primary doctor to determine whether endoscopy would be warranted. She continues to feel well at this time. Tonight's chest pain is most likely chest wall related, given that she is feeling improved after Tylenol I think she can be reasonably discharged home, gynecologic follow-up as planned, primary care follow-up regarding chest pain and esophageal findings in the next week or 2. I prescribed omeprazole, 20 mg daily for the next 2 weeks. Vital Signs Vital signs: Initial Vital Signs Temperature 98.0 F 01/26/24 03:41 Temperature Source Temporal Artery Scan 01/26/24 03:41 Pulse Rate 74 01/26/24 03:41 Respiratory Rate 18 01/26/24 03:41 Respiratory Effort Normal, Spontaneous, Non-Labored 01/26/24 03:41 Respiratory Depth Normal 01/26/24 03:41 Respiratory Pattern Normal 01/26/24 03:41 Blood Pressure 130/82 01/26/24 03:41 Blood Pressure Mean 98 01/26/24 03:41 Blood Pressure Position Sitting 01/26/24 03:41 Pulse Oximetry 99 01/26/24 03:41 Oxygen Delivery Method Room Air 01/26/24 03:41 Vital Signs Temperature 98.0 F 01/26/24 03:41 Pulse Rate 74 01/26/24 03:41 Respiratory Rate 18 01/26/24 03:41 Blood Pressure 130/82 01/26/24 03:41 Pulse Oximetry 99 01/26/24 03:41 Oxygen Delivery Method Room Air 01/26/24 03:41 Temperature 98.0 F 01/26/24 04:35 Pulse Rate 78 01/26/24 04:35 Respiratory Rate 18 01/26/24 04:35 Blood Pressure 128/78 01/26/24 04:35 Pulse Oximetry 99 01/26/24 04:35 Oxygen Delivery Method Room Air 01/26/24 04:35 Medical Decision Making Lab Data Labs: Lab Results 01/26/24 01/26/24 Range/Units 03:52 03:55 WBC 9.03 (4.50-11.00) K/uL RBC 4.12 (4.00-5.20) m/uL Hgb 11.9 L (12.0-16.0) gm/dL Hct 37.5 (33.0-51.0) % MCV 91 (80-100) fL MCH 29 (26-34) pg MCHC 32 (32-36) gm/dL RDW Coeff of [place] 13.0 (11.5-15.5) % Plt Count 265 (140-440) K/uL Neut % (Auto) 58.0 (42.0-72.0) % Lymph % (Auto) 34.1 (20-44) % [place] % (Auto) 4.5 (0.0-11.0) % Eos % (Auto) 2.7 (0.0-7.0) % Baso % (Auto) 0.6 (0.0-3.0) % Neut # (Auto) 5.24 (1.7-7.0) K/uL Lymph # (Auto) 3.08 H (0.90-2.90) K/uL [place] # (Auto) 0.40 (0.00-0.90) K/UL Eos # (Auto) 0.24 (0.00-0.50) K/uL Baso # (Auto) 0.05 (0.00-0.30) K/uL Abs Immat Gran (auto) 0.01 (0.00-0.30) K/uL Imm/Tot Granulo (auto) 0.1 % POC Troponin I 0.01 (0.01-0.04) ng/ml Imaging Data CT scan - chest: Attestation: I have reviewed the pertinent imaging results. Radiologist's impression: Patient: IRENE KRISHNA Facility: [facility] Site . Site : 1980 Study: CT-Chest Angio PE W/ISOVUE 370 95CC-01/26/2024 4:15:34 AM Ordering Physician: Adriana Del Rosario Final Report: INDICATION: Chest pain. Recent hysterectomy 01/22/2024 COMPARISON: None TECHNIQUE: : CT examination of the chest was performed with the uneventful intravenous administration of 95 cc of Isovue 370 while thin axial sections were obtained from above the apices of the lungs to the lung bases. The examination was timed as a pulmonary artery angiogram. Please note that all CT scans at this facility use dose modulation, iterative reconstruction, and/or weight-based dosing when appropriate to reduce radiation dose to as low as reasonably achievable. FINDINGS: : HEART and MEDIASTINUM: The heart size is normal. There is no mediastinal or hilar adenopathy or mass. There is no pericardial effusion.Small hiatal hernia. Mild thickening of the distal esophagus probably due to reflux associated change. Follow-up evaluation advised PULMONARY ARTERIAL CIRCULATION: There is no visible intraluminal filling defect to suggest pulmonary embolus. LUNGS and PLEURAL SPACES: The lungs show no focal consolidation or mass. The airways appear normal.There is no pleural effusion, pneumothorax or pleural based mass. Incidental right-sided granuloma. VISUALIZED UPPER ABDOMEN: The limited visualized upper abdominal structures appear normal. OSSEOUS STRUCTURES: Age-appropriate appearance. No acute fracture or destructive process. TUBES and LINES: None. IMPRESSION: 1. There is no finding of pulmonary embolus. 2. Lungs and pleural spaces show no acute focal findings. Incidental right-sided granuloma. 3. Small hiatal hernia and mild thickening of the distal esophagus may be due to chronic reflux associated change. Follow-up evaluation recommended at a clinically appropriate time Please note that all CT scans at this facility use dose modulation, iterative reconstruction, and/or weight-based dosing when appropriate to reduce radiation dose to as low as reasonably achievable. Dictated by Guilherme Campbell MD @ 01/26/2024 4:22:37 AM Discharge Plan Discharge Clinical Impression: Chest pain Patient Disposition: Home, Self-Care Instructions: Chest Pain (ED) Additional Instructions: Continue with Tylenol as needed. Your CT scan does not show any findings to explain your chest pain, no evidence of blood clots, pneumonia, etc. Your hemoglobin is stable. You do have some mild thickening of your esophagus, which can be discussed with your primary doctor. In the short term, it would be reasonable to start you on a proton pump inhibitor as gastroesophageal reflux can contribute to chest pain. If you have severe pain, fevers, worsening shortness of breath or other new symptoms, return at any time. Follow-up with gynecology for postop check as planned. Prescriptions: New omeprazole 20 mg capsule,delayed release(DR/EC) 20 mg PO DAILY Qty: 14 2RF No Action azelastine [Astepro Allergy] 205.5 mcg (0.15 %) spray,non-aerosol 1 spray intranasal BID Rx Instructions: administer into each nostril melatonin 3 mg capsule 3 mg PO HS multivitamin Tablet 1 tab PO DAILY calcium citrate 250 mg calcium tablet 500 mg PO BID Rx Instructions: Take 2 Tablets (500 mg) by mouth two times daily with meals. escitalopram oxalate [Lexapro] 10 mg tablet 10 mg PO HS docusate sodium 100 mg Capsule 100 mg PO BID PRN (Reason: Constipation) Qty: 60 0RF gabapentin 100 mg Capsule 100 mg PO TID 14 Days Qty: 42 0RF ibuprofen 600 mg Tablet 600 mg PO Q6H PRN (Reason: pain) 30 Days Qty: 60 0RF simethicone 80 mg Tablet,Chewable 160 mg PO Q4H PRN (Reason: gas) 14 Days Qty: 60 0RF Follow Up/Referrals: Tiana Yanez MD [Primary Care Provider] - Stand Alone Forms: [facility] Info Instructions
--- OUTSIDE RECORDS SUMMARY | 2024-01-26 04:34 | XMS_ITS | Clinical Summary ---
Author Organization [facility] Address [place], [place] [address] Care Team Providers Care Slat Pickler Name Role Phone Sol High MD Primary [...] due to pollen, unspecified seasonality Inhale 1 [place] into affected nostril(s) two times daily. 30 [...] significance 03/2013 Overview (11/19/2023): 03/2012 LSIL 05/2012 [place]: No biopsy 11/2013 LSIL/HPV+, HPV 16/18 negative 11/2013 [place]: LOLI 1 11/2015 LSIL 04/2016 [place]: Biopsy LOLI 1, ECC Benign 11/2017 ASCUS/HPV+ 12/2017 [place]: Biopsy and ECC Benign 04/2019 LSIL/HPV+ 02/2020 [place]: ECC Benign 04/2020 ASCUS/HPV+ 12/2021 LSIL/HPV+, HPV 16/18 negative 03/2022 [place]: ECC Benign 10/2023 LSIL/HPV+, HPV 16/18 negative. [...] 08/03/2021 Overview (05/31/2020): 04/18/2012 Pap: LSIL 05/30/2012 [place]: No Bx () 01/02/2013 Pap: LSIL 11/26/2013 Pap: LSIL/HPV+ 12/22/2013 [place]: LOLI I 11/26/2015 Pap: LSIL 05/19/2016 [place]: LOLI I 12/04/2017 Pap: ASCUS/HPV positive 01/08/2018 [place]: Benign 04/29/2019 Pap: LSIL/HPV+ 03/11/2020 [place]: ECC Benign 04/30/2020 Pap: ASCUS/HPV+ PLAN: Repeat Pap and HPV @ 1 year- 04/2021 Influenza with other respira tory manifestations 06/08/2004 04/10/2016 Encounters Date Type Department Care Team Description 01/23/2024 Lab Requisition [facility] [phone] Unknown, Doctor 01/01/2024 Lab Requisition [facility] [phone] Audra Delgado MD 11/19/[address] [place] [address] Beni Pacheco MD Pap Plan 11/07/2023 3:15 PM CDT Office Visit [facility] [address] [place] [address] Beni Pacheco MD Consult (Vaginal discharge and pain ) 11/07/2023 Travel 11/04/2023 1:30 PM CDT Office Visit [facility] [address] [place] [address] Laura Marin, SAM Vaginal Problem (hx kajal [...] Date Smoking Tobacco: Former Cigarettes Q uit: 2004 Smokeless Tobacco: Never Tobacco Cessation:Counseling Given: Not [...] LEIDY Epidur al Livin g 8 [facility] Delivery Location:[facility] Last Filed Vital Signs Vital Sign Reading [...] Procedure Name Priority Date/Time Associated Diagnosis Comments PATH TISSUE EXAM Routine 01/22/2024 8:40 AM CDT LAB TRACKING EVENT Routine 12/31/2023 11 :30 AM CDT PATH TISSUE EXAM Routine 12/31/2023 11:3 0 AM CDT STRAIGHT TOOTH GEAR GENERATOR OPERATOR THIN PREP PAP DIAGNOSTIC IMAGED Routine 11/07/2023 [...] Recently Relevant to Health Maintenance Results * PATH TISSUE EXAM (01/22/2024 8:40 AM CDT) Only the most recent of2 resultswithin the time period is included. Case Report Pathology Report ?Case: [id number] ? Authorizing Provider: ??Unknown, Doctor ?Collected: ? 01/22/2024 0840 ? Ordering Location: ? [facility] ?Received: ?01/23/2024 1041 ? Pathologist: ? Carolina Cummings MD ? Specimens: ?? A) - Uterus,cervix,bila teral fallopian tubes (no ovaries) ? B) - Right Ovarian Cyst ? 01/24/2024 4:19 PM CDT [facility] Final Diagnosis A) UTERUS WITH CERVIX AND FALLOPIAN TUBES, TOTAL HYSTERECTOMY WITH BILATERAL SALPINGECTOMY: 1. Cervix (entirely submitted): ?? a. Focal features suggestive of low grade squamous intraepithelial lesion (LOLI 1) ?? b. Benign Nabothian cysts ?? c. Margin: Negative ?? d. Negative for glandular neoplasia, high grade squamous intraepithelial lesion, and invasive carcinoma 2. Endometrium: Inactive with exogenous progestin effect 3. Myometrium: ??Leiomyomas (intramural and subserosal) 4. Uterine serosa: Unremarkable 5. Bilateral fallopian tube: Benign paratubal cysts and adhesions ?? 6. Uterine weight: 82 grams 7. Negative for malignancy B) RIGHT OVARIAN CYST, CYSTECTOMY: 1. Benign hemorrhagic luteal cyst 2. Negative for malignancy 01/24/2024 4:19 PM CDT [facility] Clinical Information Persistent cervical dysplasia and abnormal uterine bleeding. LSIL on most recent Pap with positive high-risk HPV other (not 16/18). Intraoperative findings: Normal uterus, right and left tubes, and a 2 cm right ovarian simple cyst (noted after hysterectomy). 01/24/2024 4:19 PM T [facility] ENTRSD LABORATORY Gross Description A) Received in formalin, labeled with the patient's name and uterus, cervix, right and left fallopian tube, is a 82 g, 8.8 x 4.9 x 3.8 cm uterus and cervix with unattached bilateral fallopian tubes. ??The serosa is smooth pink-torre. ??The ectocervix is 4.0 x 3.4 cm with smooth pink-torre ectocervical mucosa and a 1.5 cm slitlike os. ??The anterior aspect is inked blue and the posterior aspect is inked black. ??The endocervical canal is pink-torre and unremarkable. ??The endometrial cavity is 4.5 x 3.5 cm with lush pink-torre endometrium. ??Within the endometrial cavity is a 3.2 cm in length and 3.0 cm and with white T-shaped device consistent with intrauterine device. ??The cut surface reveals an endometrial thickness measuring up to 0.3 cm. ??The myometrium is pink-torre and averages 1.5 cm in thickness. ??There are 5 intramural to subserosal nodules ranging from 0.3 to 0.7 cm in greatest dimension. ??The cut surface of the nodules is whorled queen-white with no hemorrhage necrosis. The fallopian tubes are unoriented and measure 2.5 x 0.8 cm and 4.0 x 0.8 cm. ??The outer surfaces are smooth purple-red and fimbriated. ??The shorter fallopian tube has a 0.7 cm thin-walled cyst in the longer fallopian tube has a 1.0 cm thin-walled cyst. ??The cut surfaces reveal patent stellate lumens. Community Outreach Coordinator sections are submitted to include cervix entirely: 1-2. ??Cervix 12-3 o'clock 3-4. ??Cervix 3-6 o'clock 5-6. ??Cervix 6-9 o'clock 7-9. ??Cervix 9-12 o'clock 10. ??Anterior full-thickness endomyometrium 11. ??Posterior full-thickness endomyometrium 12. ??Nodules 13-14. ??[place] fallopian tube entirely 15-16. ??Longer fallopian tube to include fimbria entirely B) Received in formalin, labeled with the patient's name and right ovarian cyst, is a 1.9 x 1.3 x 0.4 cm rubbery tissue. ??The outer surface is smooth red-torre. ??The cut surface is torre-queen and friable. ??No cysts or lesions are identified. ??The specimen is sectioned and entirely submitted in 1 cassette. KMN 01/23/2024 01/24/2024 4:19 PM CDT [facility] Microscopic Description The final diagnosis is based on microscopic examination of appropriate sections of all specimens. 01/24/2024 4:19 PM CDT [facility] Additional Information Interpreted at [facility], Central Laboratory - [address] [address] 01/24/2024 4:19 PM CDT [facility] Other (Uterus,cervix,bi lateral fallopian tubes (no ovaries)) 01/22/2024 8:40 AM CDT 01/23/2024 10:41 AM CDT Specimen (specimen) (Right Ovarian Cyst) 01/22/2024 8:40 AM CDT 01/23/2024 10:41 AM CDT Doctor Unknown PATHOLOGY/CYTOLOGY Performing Organization Address City/[facility] Co de Phone Number [facility] [address] [place] [address], [place] * LAB TRACKING EVENT (12/31/2023 11:30 AM CDT) Other (Other) Client Collect / Unknown 12/31/2023 11:30 AM CDT 01/01/2024 10:24 PM CDT Audrapatrizia Delgado MD LAB BILL ONLY Performing Organization Address City/[facility]/ZIP Co de Phone Number [facility] [address] [place] [address], [place] * (ABNORMAL) STRAIGHT TOOTH GEAR GENERATOR OPERATOR THIN PREP PAP DIAGNOSTIC IMAGED (11/07/2023 10:04 AM CDT) Case Report Gynecologic Cytology Report ? Case: [id number] ? Authorizing Provider: ??Beni Pacheco MD ??Collected: ? 11/07/2023 1004 ? Ordering Location: ? [facility] ?Received: ?11/08/20231003 ? Clinic ? First Screen: ?[place], [place] ? Pathologist: ? Brett Jaimes MD ? Specimen: ?STRAIGHT TOOTH GEAR GENERATOR OPERATOR ThinPrep Vial Diagnostic, Cervical ? 12/28/2023 10:02 AM CDT [facility] Amendment Corrected Collection Date Only 12/28/2023 10:02 AM CDT [facility] ENTRAL LABORATORY INTERPRETATION/ RESULT LOW GRADE SQUAMOUS INTRAEPITHELIAL LESION (LSIL)(A) (none) 12/28/2023 10:02 AM T [facility] Amendment electronically signed by Brett Jaimes MD on 12/28/2023 at 10:02 AM IMEN ADEQUACY Satisfactory for evaluation Endocervical component present 12/28/2023 10:02 AM CDT [facility] EN[facility] LAB[facility] HPV REQUEST HPV and PAP 12/28/2023 10:02 AM CDT [facility] Date of LMP IUD 12/28/2023 10:02 AM CDT [facility] Last Pap Date 01/19/22 12/28/2023 10:02 AM CDT [facility] Last Pap Result LSIL 10:02 AM CDT [facility] Abnormal Pap or [place] Bx in last 5 years Yes 12/28/2023 10:02 AM CDT [facility] Menstrual Status Regular Periods 12/28/2023 10:02 AM T [facility] [place] Bx Done Today No 12/28/2023 10:02 AM T [facility] Additional Information None Given 12/28/2023 10:02 AM CDT [facility] Comment: Cytology is screened at [facility] - [address], [place] [address] and [facility] - [address], [place] [address] and [facility] - [address] [place] [address] Interpreted at [facility] - [address], [place] [address] Automated Review Successful 12/28/2023 10:02 AM CDT [facility] EN[facility] Comment:Specimen processed s uccessfully by automated taxi cab driver device, ThinPrep Imaging System, [employer] ANCILLARY TESTING STRAIGHT TOOTH GEAR GENERATOR OPERATOR HPV Ordered, Please see separate report 12/28/2023 10:02 AM CDT [facility] Note The pap test is a [...] and malignant lesions. 12/28/2023 10:02 AM CDT [facility] Other (Cervical) Non-Blood / Unknown 11/07/2023 10:04 AM CDT 11/08/2023 10:04 AM CDT Beni Pacheco MD PATHOLOGY/CYTOLO GY Performing Organization Address City/State/[facility] Co de Phone Number [facility] [address] [place] [address], * (ABNORMAL) HPV HIGH RISK (11/07/2023 10:04 AM CDT) TYPE 16 Negative Negative 12/28/2023 3:22 PM CDT [facility] TRAL LABORATORY TYPE 18 Negative Negative 12/28/2023 3:22 PM CDT [facility] TRAL LABORATORY OTHER HIGH RISK TYPES Positive(A) Negative 12/28/2023 3:22 PM CDT [facility] Other (Cervical) Non-Blood / Unknown 11/07/2023 10:04 AM CDT 11/09/2023 9:25 AM CDT Narrative [facility] - 12/28/2023 3:22 PM CDT Corrected Collection Date Only Specimen is positive for the DNA of any one of, or combination of, the following high risk HPV types: 31, 33, 35, 39, 45, 51, 52, 56, 58, 59, 66, 68. HPV types 16 and 18 DNA were undetectable or below the pre-set threshold. ? Methodology: Zivity Yakov 4800 HPV Test Beni Pacheco MD MICROBIOLOGY [facility] [address] [place] [address], * TRICHOMONAS, KYRA, AND BACTERIAL VAGINOSIS BY VERN (11/04/2023 1:31 PM CDT) KYRA SPECIES Negative Negative 5:31 PM CDT [facility] TRAL LABORATORY KYRA GLABRATA Negative Negative 11/05/2023 5:31 PM CDT [facility] TRAL LABORATORY TRICHOMONAS VVA Negative Negative 5:31 PM CDT [facility] TRAL LABORATORY BACTERIAL VAGINOSIS Negative Negative 11/05/2023 5:31 PM CDT [facility] TRAL LABORATORY Other VAGINAL SWAB / Unknown Non-Blood / Unknown 11/04/2023 1:31 PM CDT 11/04/2023 2:28 PM CDT Laura Marin NP MICROBIOLOGY Performing Organization Address [facility] Co de Phone Number [facility] [address] [place] [address], * ANTI HIV 1/2 (11/18/2015 3:38 PM CDT) HIV-1/HIV-2 ANTIBODY Non-Reacti ve Non-Reacti ve 11/18/2015 9:03 PM CDT [facility] Blood BLOOD SPECIMEN / Unknown Venipuncture / Unknown 11/18/2015 3:38 PM CDT 11/18/2015 3:39 PM CDT Narrative [facility] - 11/18/2015 9:03 PM CDT HIV-1 p24 and HIV-1/HIV-2 Ab not detected Jada Jackson MD SEND OUTS [facility] [address] [place] [address], from Last 3 Months or Most Recently [...] 8:32 PM 02/17/2016 12:08 AM Care Teams Slat Pickler Relationship Specialty Start Date End Date Sol High MD [address] [place] [address] PCP - General Family Practice 09/15/21
[2024-01-26 04:35] VITALS: BP 128/78; PULSE 78; RESP 18; TEMP 36.7; O2SAT 99
[2024-01-26 04:44] VITALS: BP 128/78; PULSE 78; RESP 18; TEMP 36.7
== END 2024-01-26 04:45 | disposition home or self-care (01) ==
PROVIDERS: Emergency Provider Emergency Medicine; PCP Family Medicine
DX: R07.9 Chest pain, unspecified (principal)
CPT/HCPCS: 36415; 71275; 84484; 85025; 93005; 99284; 99285; Q9967

== ENCOUNTER 2024-03-31 10:57 | Outpatient (CLI) | payer OTHER, SELFPAY ==
--- NOTE | 2024-03-31 11:30 | CRLHL7_ITS ---
For Patients: As a result of the Century Cures Act, medical imaging exams and procedure reports are released immediately into your electronic medical record. You may view this report before your referring provider. If you have questions, please contact your health care provider. BILATERAL SCREENING MAMMOGRAM WITH COMPUTER-AIDED DETECTION AND TOMOSYNTHESIS TECHNIQUE: CC and MLO views were obtained. These mammographic images have been obtained using full-field digital technique. These mammographic images were interpreted with the benefit of computer-aided detection. Breast Tomosynthesis was used in this interpretation. COMPARISON FILM: Baseline. FINDINGS: The breasts are heterogeneously dense, which may obscure small masses. IMPRESSION: There is no radiographic evidence for malignancy. ASSESSMENT: BI-RADS Category 2: Benign RECOMMENDATION: Routine screening mammogram in 1 year. A lay language report of this examination will be provided to the patient. Tejas Phipps M.D. Diagnostic Radiologist [email or web address] SP/Dictated by: Tejas Phipps MD @ 03/31/2024 11:46:00 AM (Electronically Signed)
== END 2024-03-31 10:58 | disposition home or self-care (01) ==
LOC: MAMMO 10:58
PROVIDERS: PCP Family Medicine; Visit Provider Family Medicine
DX: Z12.31 Encounter for screening mammogram for malignant neoplasm of breast (principal); R92.333 Mammographic heterogeneous density, bilateral breasts
CPT/HCPCS: 77063; 77067

== ENCOUNTER 2024-10-01 09:56 | Outpatient (CLI) | payer OTHER, SELFPAY | END 2024-10-01 09:57 | disposition home or self-care (01) | LOC: NFLDREF 09:57 | PROVIDERS: PCP Family Medicine; Visit Provider Family Medicine | DX: R73.01 Impaired fasting glucose (principal); R63.1 Polydipsia | CPT/HCPCS: 80053 ==

== ENCOUNTER 2025-01-08 10:53 | Outpatient (CLI) | payer BC, SELFPAY | END 2025-01-08 10:54 | disposition home or self-care (01) | LOC: NFLDREF 01-23 02:05 | PROVIDERS: PCP Family Medicine; Referring Provider Family Medicine; Visit Provider Family Medicine | DX: D64.9 Anemia, unspecified (principal); K76.0 Fatty (change of) liver, not elsewhere classified; R73.01 Impaired fasting glucose | CPT/HCPCS: 80053; 80061; 82607; 82728 ==

== ENCOUNTER 2025-01-26 22:22 | Emergency (ER) | payer BC, SELFPAY ==
--- OUTSIDE RECORDS SUMMARY | 2025-01-26 22:24 | XMS_ITS | Clinical Summary ---
Author Organization [employer] [facility] Address [address] [place] [address] Care Team Providers Care Product Picker Name Role Phone Sol High MD Primary Care Provi harshad Allergies Active Allergy Reactions Criticality Noted Date Comments Cats (Fur, Dander, Saliva) Runny Nose 3 House Dust Runny Nose 12/02/2022 Pollen Extracts Runny Nose 12/02/2022 Medications albuterol HFA (Ventolin HFA) 90 mcg/actuation inhalerIndicatio ns:Seasonal allergic rhinitis due to pollen Inhale 2 Puffs by mouth 4 times daily if needed (cough). 18 g 1 2 Active Calcium Citrate 250 mg calcium tablet Take 2 Tablets (500 mg) by mouth two times daily with meals. 240 Tablet 5 3 Active multivitamin (MVI) tablet Take 1 Tablet by mouth once daily. 0 3 Active elderberry fruit 50 mg/5 mL syrp Take by mouth. 0 3 Active azelastine 137 mcg/actuation (ASTELIN) nasal sprayIndications :Allergic rhinitis due to pollen, unspecified seasonality Inhale 1 [place] into affected nostril(s) two times daily. 30 mL 2 3 Active Active Problems Problem Noted Date Diagnosed Date Fatty liver 08/03/2021 Dysmenorrhea 08/03/2021 Overview (08/03/2021): Sees ObGyn for hysterectomy Family history of breast cancer 08/03/2021 Overview (08/03/2021): And ovarian cancer and melanoma History of alcohol use disorder 01/01/2019 Generalized anxiety disorder 01/25/2018 Major depressive disorder 01/25/2018 History of hysterectomy 11/24/2013 Overview (11/12/2024): 03/2012 LSIL 05/2012 [place]: No biopsy 11/2013 LSIL/HPV+, HPV 16/18 negative 11/2013 [place]: LOLI 1 11/2015 LSIL 04/2016 [place]: Biopsy LOLI 1, ECC Benign 11/2017 ASCUS/HPV+ 12/2017 [place]: Biopsy and ECC Benign 04/2019 LSIL/HPV+ 02/2020 [place]: ECC Benign 04/2020 ASCUS/HPV+ 12/2021 LSIL/HPV+, HPV 16/18 negative 03/2022 [place]: ECC Benign 10/2023 LSIL/HPV+, HPV 16/18 negative. 12/2023 Hysterectomy, cervix removed Plan: cervical cancer screening no longer indicated Allergic rhinitis, cause unspecified 08/12/2003 Resolved Problems [...] 08/03/2021 Overview (05/31/2020): 04/18/2012 Pap: LSIL 05/30/2012 [place]: No Bx () 01/02/2013 Pap: LSIL 11/26/2013 Pap: LSIL/HPV+ 12/22/2013 [place]: LOLI I 11/26/2015 Pap: LSIL 05/19/2016 [place]: LOLI I 12/04/2017 Pap: ASCUS/HPV positive 01/08/2018 [place]: Benign 04/29/2019 Pap: LSIL/HPV+ 03/11/2020 [place]: ECC Benign 04/30/2020 Pap: ASCUS/HPV+ PLAN: Repeat Pap and HPV @ 1 year- 04/2021 Influenza with other respira tory manifestations 06/08/2004 04/10/2016 Encounters Date Type Department Care Team Description 11/12/[address] [phone] Beni Pacheco MD Pap Plan (Pap tracking update. Plan post hysterectomy) from Last 3 Months Immunizations Immunization Administration Dates Next Due HPV 9 (Gardasil [...] of Communication with Friends and Fami ly 0 12/02/2022 Financial Resource Strain Answer Date R ecorded [...] Housing in the Last Year 1 12/02/2022 Comments No Sex and Gender Information Value Date Recorded Sex Assigned at Not on file Legal Sex Female 6:29 AM MEDIA SERVICES DIRECTOR Gender Identity Female 09/13/2019 1:53 AM CDT [...] LEIDY Epidur al Livin g 8 9 WEHRE BG ARIEL MARYELLEN Delivery Location:[facility] Last Filed Vital Signs Vital Sign Reading Time Taken Comments Blood Pressure 116/80 11/07/2023 3:12 PM CDT Pulse 86 11/07/2023 3:12 PM CDT Temperature 36.7 C (98.1 F) 11/04/2023 1:37 PM CDT Respiratory Rate 18 11/04/2023 1:37 PM CDT Oxygen Saturation 97% 11/04/2023 1:37 PM CDT Inhaled Oxygen Concentration - - Weight 74.4 kg (164 lb) 11/07/2023 3:12 PM CDT Height 162.6 cm (5' 4) 12/08/2022 8:10 AM CDT Body Mass Index 28.15 12/08/2022 8:10 AM CDT Plan of Treatment Health Maintenance Due Date Last Done Comments Hepatitis C screening for age 18-79 11/14/1999 Hepatitis B series for 19+ (1 of 3 - 19+ 3-dose series) 2000 Depression screening for age 12+ 08/03/2022 08/03/2021, 04/30/2020, 05/02/2019, Additional history exists BMI (ht and wt on same day) for age 18+ 01/19/2023 01/19/2022, 08/03/2021, 04/30/2020, Additional history exists HPV series for age 9-45 (2 - 3-dose SCDM series) 12/05/2023 11/07/2023 Influenza Vaccine (#1) 2024 2, 03/03/2021, 01/22/2020, Additional history exists Tetanus booster 11/25/2025 11/26/2015 RSV vaccine for adults or (1 - 1-dose 75+ series) 2056 HIV for age 15-65 Completed 11/18/2015 Pneumococcal series for age 6-49 Aged Out 04/07/2022 No longer eligible based on patient's age to complete this topic Procedures Procedure Name Priority Date/Time Associated Diagnosis Comments ANTI HIV 1/2 Routine 11/18/2015 3:38 PM CDT Encounter for supervision of other normal , first trimester (HC) from Last 3 Months or Most Recently Relevant to Health Maintenance Results * ANTI HIV 1/2 (11/18/2015 3:38 PM CDT) HIV-1/HIV-2 ANTIBODY Non-Reacti ve Non-Reacti ve 11/18/2015 9:03 PM CDT [facility] Blood BLOOD SPECIMEN / Unknown Venipuncture / Unknown 11/18/2015 3:38 PM CDT 11/18/2015 3:39 PM CDT Narrative [facility] - 11/18/2015 9:03 PM CDT HIV-1 p24 and HIV-1/HIV-2 Ab not detected us Jada Jackson MD SEND OUTS Final Result [facility] [address] [place] [address], [place] from Last 3 Months or Most Recently Relevant to Health Maintenance Insurance [employer] [facility] [employer] OF [place] [employer] Advance Directives * Full Code (Latest Code [...] 8:32 PM 02/17/2016 12:08 AM Care Teams Product Picker Relationship Specialty Start Date End Date Sol High MD [address] [place], [place] [address]ERIC Gandhi [id number] PCP - General Family Practice 09/15/21
--- OUTSIDE RECORDS SUMMARY | 2025-01-26 22:24 | XMS_ITS | Data Portability ---
Author Organization [place] - [facility], [employer] Address [address] [place] [address] Assessment Encounter Date Assessment Date Assessment LastModified by Organization Details LastModified Time 10/06/2024 10/06/2024 Educated patient on the etiology, prognosis, treatment options for plantar fasciitis. Ordered three weightbearing radiographs of bilateral feet at [facility] and reviewed my individual findings with patient as noted above. For the working diagnosis of bilateral plantar fasciitis, the clinical reasoning is based on the patient s history of increased activity, pain with first steps in the morning, and point tenderness at the medial calcaneal tubercle and plantar arch. Recommended a structured stretching program focusing on calf and plantar fascia stretches, including wall stretches and stair drops, to address tightness and improve flexibility. Properly sized and dispensed supportive shoe inserts (ped pillows) with gradual break-in to provide arch support and reduce strain on the plantar fascia. Prescribed naproxen 500 mg to be taken twice daily with food for two weeks to reduce inflammation, with instructions to monitor for gastrointestinal side effects. Discussed the importance of consistent use of supportive footwear at work and at home, and to avoid barefoot walking. For the left hallux onychomycosis, discussed topical and oral antifungal options, including the limited efficacy and prolonged treatment course of topical agents and the potential risks of oral therapy given the patient s medical history. Advised the patient that nail georgian may reduce the effectiveness of topical treatments. Provided education on at-home remedies such as Vicks VapoRub, tea tree oil, and apple cider vinegar soaks. Patient opted to continue with conservative management at this time. For the history of recurrent ingrown toenail and current incurvated nail, recommended use of silicone toe spacers or cotton to reduce pressure between the hallux and second toe. Advised on proper nail trimming technique and avoidance of compression socks. No acute intervention required as there is no evidence of infection or active ingrowth. Discussed the option of repeat partial nail avulsion with matrixectomy if symptoms worsen or become recurrent. Follow-up was recommended in two to three weeks at the [place] office for reassessment. Patient was instructed to call sooner if symptoms worsen or new issues arise. All questions were addressed, and the patient verbalized understanding of the plan. Patient verbalized understanding and is in agreement with the above treatment plan. Total time spent on the E/M service was 45 minutes, which included reviewing patient history, performing a medically appropriate examination, counseling the patient, and documenting clinical information. This time excludes any procedures or imaging potentially obtained during this visit. [email or web address] Not available 10/07/2024 12:14:31 Plan of Treatment Reminders Order Date Submit Date Provider Last Modified By Organization Details Last Modified Time Details Appointments None recorded. Lab None recorded. Referral None recorded. Procedures None recorded. Surgeries None recorded. Imaging None recorded. Medication Orders Naprosyn 500 mg tablet [address] [place] [address] [place] [address], [address], 15:46:38 Patient TargetsNo targets recorded. Patient InstructionsNo instructions recorded. Reason for Referral None Reported. Medical Equipment None Reported. Allergies Allergen ID Allergen Name Allergen Category Reaction Reaction Severity Criticality Documentation Date Start Date Code Code System Note Provider Name and Address Organization Details Recorded Time grass pollen environme nt,medica tion Not available Not available Not available 10/07/2024 ERIC Kennedy [facility] 10:05:34 48552 cat dander environme nt Not available Not available Not available 10/07/2024 ERIC Kennedy [facility] 10:05:40 67625 house dust mite environme nt Not available Not available Not available 10/07/2024 ERIC Kennedy [facility] 10:05:49 Medications Name Sig Start Date Stop Date Status Note LastModified by Organization Details LastModified Time docusate sodium 100 mg capsule TAKE 1 CAPSULE BY MOUTH TWICE DAILY NEEDED FOR CONSTIPAT ION 10/07 completed Not Available Not Available Not Available gabapentin 100 mg capsule TAKE 1 CAPSULE BY MOUTH THREE TIMES DAILY FOR 14 DAYS 10/07 completed Not Available Not Available Not Available ibuprofen 600 mg tablet TAKE 1 TABLET BY MOUTH EVERY 6 HOURS NEEDED FOR PAIN active Not Available Not Available No t Available methylpredn isolone 4 mg tablets in a dose pack FOLLOW PACKAGE DIRECTION S 10/07 completed Not Available Not Available Not Available albuterol sulfate HFA 90 mcg/actuati on aerosol inhaler INHALE 2 PUFFS BY MOUTH EVERY 6 TO 8 HOURS NEEDED FOR SHORTNESS OF BREATH OR WHEEZING active Not Available Not Available No t Available naproxen 500 mg tablet TAKE 1 TABLET BY MOUTH TWICE DAILY FOR 14 DAYS active Not Available Not Available No t Available escitalopra m 10 mg tablet TAKE 1 TABLET BY MOUTH ONCE DAILY active Not Available Not Available No t Available escitalopra m 5 mg tablet TAKE 1 TABLET BY MOUTH ONCE DAILY active Not Available Not Available No t Available chlorhexidi ne gluconate 0.12 % mouthwash SWISH AND SPIT 1/2 OUNCE TWICE DAILY FOR 7 DAYS 10/07 completed Not Available Not Available Not Available melatonin active Not Available Not Tala ilable Not Available diphenhydra mine HCl active Not Available Not Available Not Available azelastine active Not Available Not Av ailable Not Available calcium citrate active Not Available Not Available Not Available multivitami n active Not Available Not Available Not Available Vitals None Recorded Social History None recorded. Functional Status None recorded. Mental Status None recorded. Family History Nothing Reported. Medical History No medical history recorded. Gynecological HistoryNo gynecological history recorded. Obstetrics History GPAL:G 0 P 0 0 0 0 Past Encounters Encounter ID Performer Location Encounter Start Date Encounter Closed Date Diagnosis/Indication Diagnosis SNOMED-CT Code Diagnosis ICD10 Code Diagnosis IMO Codes Diagnosis Note [id number] DIANA HATCH DPM [address] [address] 10/06/2024 12:00:16 10/07/2024 15:14:46 Plantar fasciitis 085846733 M72.2 43033 Onychomycosis [id number] B35.1 46645 Contractur e of joint of left ankle [id number] 53735 M24.451 2104130 Contractur e of joint of right ankle [id number] 62252 M24.135 [id number] Health Concerns Section Related Observation LastModified by Organization Detai ls LastModified Time None Recorded Concern Status LastModified by Organization Details LastModified Time None Recorded Advance Directives Directive None Recorded Payers Insurance Date Sequence Insurance Name Policy Number Policy Pelayo Covered Member ID Pelayo Member ID Guarantor Name 10/06/[address] [facility] [id number] [place] [id number] Maryellen Patriciahoang Notes Date Note Type Note Provider Name and Address Organization Details Recorded Time 10/06/2024 text/html The patient presents with a six-month history of bilateral heel pain, described as a burning and itching sensation at the end of work shifts. The discomfort is most pronounced with the first steps in the morning, causing them to feel hunched over and requiring several minutes to straighten up. The pain is located at the back and bottom of both heels. They have attempted various interventions, including foot massage, frozen water bottle rolling, and [id number] pain medications (ibuprofen, Aleve, Tylenol), none of which provided significant relief. The patient has also tried multiple footwear options, including Cariuma shoes (which have been the most comfortable so far), Saucony, Avia, Dansko clogs, and various inserts from [email or web address]. 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 They mention a family history of a genetic condition possibly related to Marfan's syndrome, with their children having undergone physical therapy for foot and ankle issues.Additionally , the patient expresses concern about the left hallux toenail, which has visible discolored spots and does not grow as quickly as the contralateral side. There is a history of two prior ingrown toenail procedures: a total nail avulsion in 2012 and a partial avulsion with chemical matrixectomy in 2020. The patient notes that the left hallux and second toe abut, causing irritation and occasional pain along the nail border. They have been advised to avoid compression socks and have tried to maintain proper nail trimming. No current signs of acute infection are reported, but the patient is interested in options for managing the appearance and discomfort of the toenail. DIANA HATCH, MARIZA [address] [place], [address], [facility] 10/07/2024 12:15:04 OBGyn Episode No OBEpisode recorded.
[2025-01-26 22:36] VITALS: BP 121/74; PULSE 69; RESP 16; TEMP 36.7; O2SAT 99; BMI 31.1
--- NOTE | 2025-01-26 23:05 | ED.ANIMALBIT ---
HPI - Animal Bite General Chief Complaint: Animal Bite Stated Complaint: cat bite/R hand Time Seen by Provider: 01/26/25 22:30 History of Present Illness HPI narrative: This 44-year-old female comes in with a cat bite to her right hand. This was 1 of her own kittens that she rescued when they were very young and she has had now for 2 or 3 months. The kitten that bit her appears normal but has not had vaccinations yet. The patient does not suspect any possibility of rabies as the kitten is kept inside and is behaving normally otherwise. The patient states that she was clipping the kittens nails and probably triggered they bite from the cat. This happened today and the patient knows that there is a high risk of infection with a cat bite to the hand. She has 3 puncture holes in the thenar aspect of her right hand and a few superficial scratches. Related Data Home Medications ?Medication ?Instructions ?Recorded ?Confirmed multivitamin 1 tab PO DAILY 12/20/23 01/26/25 melatonin 3 mg capsule 3 mg PO HS 01/09/24 01/26/25 calcium citrate 500 mg PO BID 01/22/24 01/26/25 diphenhydramine HCl 25 mg capsule 50 mg PO QHS PRN 02/06/24 01/26/25 (Benadryl) ibuprofen 200 mg capsule 200 mg PO Q6H PRN 02/06/24 01/26/25 Previous Rx's ?Medication ?Instructions ?Recorded albuterol sulfate 90 mcg/actuation 2 inh inhalation Q6-8H PRN 01/08/25 aerosol inhaler shortness of breath or wheezing #6.7 grams escitalopram oxalate 10 mg tablet 10 mg PO QDAY #90 tabs 01/08/25 (Lexapro) azelastine 137 mcg (0.1 %) nasal 1 spray intranasal BID #30 mL 01/13/25 spray Allergies Allergy/AdvReac Type Severity Reaction Status Date / Time grass pollen-perennial rye, Allergy Intermediate Verified 01/26/25 10:49 standar cat dander AdvReac Intermediate Verified 01/26/25 10:49 house dust mite AdvReac Intermediate Verified 01/26/25 10:49 Review of Systems Status of ROS: Reports: 10 or more systems reviewed and unremarkable except as noted in History and below Narrative: Constitutional: No fevers, no weight gain or loss. Eyes: No discharge. No vision changes. HENT: No congestion, no sore throat, no ear pain. Cardiovascular: No chest pain, no palpitations. Respiratory: No shortness of breath, no wheezes, no cough. Gastrointestinal: No abdominal pain, no vomiting, no diarrhea. Genitourinary: No dysuria, no hematuria. Musculoskeletal: Normal range of motion. Skin: No rashes, no pruritis. Neurological: No dizziness, weakness, sensory change, speech change. Endo/Heme/Allergies: No bruising or bleeding. No polydipsia. Pysch: no suicidality, no anxiety, no insomnia. All other systems reviewed and are negative. [facility] Medical History Major depression ?F32.9 - Major depressive disorder, single episode, unspecified (ICD-10) Allergic rhinitis, cause unspecified (08/12/03) ?J30.9 - Allergic rhinitis, unspecified (ICD-10) Fatty liver (08/03/21) ?K76.0 - Fatty (change of) liver, not elsewhere classified (ICD-10) Low grade squamous intraepithelial dysplasia Borderline personality disorder ?F60.3 - Borderline personality disorder (ICD-10) Seasonal allergies ?J30.2 - Other seasonal allergic rhinitis (ICD-10) NAFLD (nonalcoholic fatty liver disease) (2020) ?K76.0 - Fatty (change of) liver, not elsewhere classified (ICD-10) History of alcoholism ?F10.21 - Alcohol dependence, in remission (ICD-10) Exercise-induced asthma ?J45.990 - Exercise induced bronchospasm (ICD-10) Depression ?F32.A - Depression, unspecified (ICD-10) Surgical History History of hysterectomy (12/2023) ?Z90.710 - Acquired absence of both cervix and uterus (ICD-10) History of tooth extraction (10/2023) ?K08.409 - Partial loss of teeth, unspecified cause, unspecified class (ICD-10) Family History Depression with anxiety Mother Type 2 diabetes mellitus Father Mother Melanoma Aunt Aunt Myocardial infarction Maternal Grandfather, Onset Age: 55 Maternal Grandmother, Onset Age: 75 Personality disorder Father Breast cancer Aunt, Onset Age: 55 Paternal Grandmother, Onset Age: 75 Stroke Maternal Grandfather Father, Onset Age: 67 Paternal Grandfather, Onset Age: 75 Social History Narrative: , works at [employer] in [place], 2 children walks at work 10 000 step [employer] 3/ week just started. Ex-smoker quit May 2023, history of 10 pack years Does not drink alcohol, quit 2018 What is your current living situation?: I presently have a place to live Problems where you live: no known problems In the past 12 months, utilities in danger of being shut off: no In past 12 months, lack of transportation kept you from medical appts, meetings, work, or getting things needed for daily living: no In the past 12 mos, have been you worried that your food would run out before you had money to buy more?: never true In the past 12 mos, the food you bought just didn't last and you didn't have money to buy more?: never true Smoking Status: Former smoker Do you use any of these nicotine containing products: None Second hand tobacco smoke exposure: No How often do you have a drink containing alcohol: never AUDIT-C Alcohol total score: 0 Non-prescribed substance use: denies use Caffeine: Yes How often does anyone, including family, friends and others, physically hurt you: never How often does anyone, including family, friends and others, insult or talk down to you: never How often does anyone, including family, friends and others, threaten you with harm: never How often does anyone, including family, friends and others, scream or curse at you: never Exam Narrative: Exam Narrative: Constitutional: Well-developed, well-nourished, no acute distress. HEENT: Normocephalic, atraumatic. Neck: Normal range of motion. Nontender. Supple. Heart: Intact distal pulses. Lungs: No chest discomfort. No wheezes, rhonchi, or rales. Abdomen: Nontender. Back: Normal range of motion. Extremities: Normal range of motion. Three puncture wounds from cat bite in the thenar aspect of her right hand. Some superficial abrasions. Skin: Intact. No rash. Warm. No erythema or pallor. Neurologic: No altered sensation. No weakness. Alert and oriented. Psychiatric: No suicidality. No anxiety or depression. No insomnia. Nursing notes and vitals signs are reviewed. Const: Vital Signs, click to edit/add: Vital Signs - 24 hr 01/26/25 22:36 Temperature 98.1 F Pulse Rate [Pulse Oximeter] 69 Respiratory Rate 16 Blood Pressure [Ri ght Upper Arm] 121/74 Pulse Oximetry 99 Oxygen Delivery Me thod Room Air Course Vital Signs Vital signs: Initial Vital Signs Temperature 98.1 F 01/26/25 22:36 Temperature Source Temporal Artery Scan 01/26/25 22:36 Pulse Rate 69 01/26/25 22:36 Respiratory Rate 16 01/26/25 22:36 Blood Pressure 121/74 01/26/25 22:36 Blood Pressure Mean 89 01/26/25 22:36 Blood Pressure Position Sitting 01/26/25 22:36 Pulse Oximetry 99 01/26/25 22:36 Oxygen Delivery Method Room Air 01/26/25 22:36 Vital Signs Temperature 98.1 F 01/26/25 22:36 Pulse Rate 69 01/26/25 22:36 Respiratory Rate 16 01/26/25 22:36 Blood Pressure 121/74 01/26/25 22:36 Pulse Oximetry 99 01/26/25 22:36 Oxygen Delivery Method Room Air 01/26/25 22:36 Temperature 98.1 F 01/26/25 22:36 Pulse Rate 69 01/26/25 22:36 Respiratory Rate 16 01/26/25 22:36 Blood Pressure 121/74 01/26/25 22:36 Pulse Oximetry 99 01/26/25 22:36 Oxygen Delivery Method Room Air 01/26/25 22:36 MDM - Animal Bite MDM Narrative Medical decision making narrative: This patient had a cat bite to her right hand as described above. I did speak with her about rabies and an un vaccinated cat. She is confident that there is no risk of rabies and declines any such treatment. I did provide and [facility] prescription for Augmentin given the high risk of infection for a cat bite to the hand. Discharge Plan Discharge Clinical Impression: Cat bite Patient Disposition: Home, Self-Care Condition: Stable Additional Instructions: Take medication as prescribed. Follow up with MD as needed and return if worsening symptoms occur. Prescriptions: No Action melatonin 3 mg capsule 3 mg PO HS ibuprofen 200 mg capsule 200 mg PO Q6H PRN diphenhydramine HCl [Benadryl] 25 mg capsule 50 mg PO QHS PRN multivitamin Tablet 1 tab PO DAILY escitalopram oxalate [Lexapro] 10 mg tablet 10 mg PO QDAY Qty: 90 3RF albuterol sulfate 90 mcg/actuation HFA aerosol inhaler 2 inh inhalation Q6-8H PRN (Reason: shortness of breath or wheezing) Qty: 6.7 2RF calcium citrate 250 mg calcium tablet 500 mg PO BID Rx Instructions: Take 2 Tablets (500 mg) by mouth two times daily with meals. azelastine 137 mcg (0.1 %) spray,non-aerosol 1 spray intranasal BID Qty: 30 0RF Rx Instructions: administer into each nostril Follow Up/Referrals: Tiana Yanez MD [Primary Care Provider, Family Practice] Stand Alone Forms: [employer] Info Instructions
[2025-01-26 23:36] VITALS: BP 118/70; PULSE 65; RESP 16; TEMP 36.7; O2SAT 99
== END 2025-01-26 23:37 | disposition home or self-care (01) ==
LOC: ED 23:11
PROVIDERS: Emergency Provider Emergency Medicine Emergency Medical Services; PCP Family Medicine
DX: S61.431A Puncture wound without foreign body of right hand, initial encounter (principal); W55.01XA Bitten by cat, initial encounter
CPT/HCPCS: 99283; 99284